=== PATIENT | male | born 1950 | race Caucasian/White ===

== ENCOUNTER 2019-02-14 09:54 | Inpatient (IN) ==
[2019-02-14] MEDS: 0.9 % Sodium Chloride 1,000 ML IVC SCH ×2 (10:58→22:16)
--- NOTE | 2019-02-14 11:27 | Pre-Sedation Evaluation ---
Pre-sedation evaluation - Pre-sedation checklist Date of procedure: 02/14/19 Procedure: [facility] Recent Vitals: Last Vital Signs Temp 98.1 F 02/14/19 10:38 Pulse 68 02/14/19 10:38 Resp 18 02/14/19 10:38 BP 161/84 02/14/19 10:38 Pulse Ox 98 02/14/19 10:38 H&P (including ROS) documented in medical record: Yes Previous reaction to sedatives/anesthetics: No Dietary Status: NPO after Midnight Airway Assessment: Patient can open mouth completely, TMJ function normal, Micrognathia (under-bite, receding chin) absent, Neck with adequate range of mot ion Dentition: No loose teeth or bridges Possible difficult airway: No ASA Classification *see protocol: CLASS II-Mild systemic disease Plan of Care: Pt appropriate candidate for procedure/moderate/conscious sedation, Risks/benefits of procedure/sedation discussed w/ patient/family Cardiac Registry (Cardio Only) - Functional Capacity Functional Capacity: >=4 METS with symptoms - Clincal Frailty Scale Clinical Frailty Scale: Managing Well
--- NOTE | 2019-02-14 11:28 | History & Physical Report ---
Date of Encounter: 02/14/19 Time of Encounter: 11:25 24 Hour HP Update - Instructions Instructions: If the History and Physical is less than 30 days old and was completed prior to A.M. admission and or procedure and has NOT been updated on calendar day of procedure please complete this update prior to performing procedure. - Update Patient reports changes in Medical Condition: No Changes in examination, assessment, or condition: No Changes in Medication: No Preop tests/diagnostics Reviewed: Yes Surgery Remains Indicated: Yes Consent for Planned Operative Procedure(s) Verified: Yes - Pre-Operative Checklist Preoperative Checklist Indicated: No Prophylactic Antibiotic Ordered: No Home Medications Include Beta Ronald: Yes Beta Ronald Taken Today (Day of Surgery): Yes Beta Ronald Taken Yesterday (Day Prior to Surgery): Yes Is VTE Prophylaxis Indicated?: NO
[2019-02-14] MEDS ORDERED: Heparin 1,000 UNITS/500 mL 500 ML ONE (11:31)
[2019-02-14] MEDS ORDERED: *HR* Heparin 10,000 UNIT/10 ML VIAL ONE (11:31)
[2019-02-14] MEDS ORDERED: 0.9 % Sodium Chloride 1,000 ML ONE (11:31)
[2019-02-14] MEDS ORDERED: ISOVUE-370 200 ML INFUS..BTL ONE (11:31)
[2019-02-14] MEDS ORDERED: Nitroglycerin 1,000 MCG/10 ML VIAL IV ONE (11:31)
[2019-02-14] MEDS ORDERED: *HR* Midazolam HCl 2 MG/2 ML VIAL ONE (11:47)
[2019-02-14] MEDS ORDERED: *HR* FentaNYL (PF) 100 MCG/2 ML VIAL ONE (11:47)
[2019-02-14] MEDS ORDERED: D5% in Water 1,000 ML IVC PRN (15:39)
[2019-02-14] MEDS ORDERED: Dextrose Gel 15 GM/37.5 ML TUBE PO PRN ×2 (15:39)
[2019-02-14] MEDS ORDERED: *HR* Dextrose 50 % in Water (Syg) 50 ML SYRINGE IVP PRN (15:39)
[2019-02-14] MEDS ORDERED: Nitroglycerin 0.4 MG TAB.SUBL SL PRN (15:45)
--- NOTE | 2019-02-14 15:47 | Invasive Diagnostic Lab Proc ---
Name: Humble Metzger Date of Study: 02/14/2019 Date: 1950 Ht: 70.0in Medical Record#: [id number] Age: 69 Wt: 221.00lb Gender: Male BSA: 2.18 Order #: [id number] BMI: 31.71 Physicians Procedure Physician: Karey Garcia MD, [facility] Referring MD: [facility] Referring MD: Staff Name Position Time In RichelleArleen RN Pre-Op Nurse 10:40 AM Deb Campos RN Pre-Op Nurse 10:40 AM Divina Morrison RT (R) Pre-Op Nurse 10:40 AM Divina Morrison RT (R) Scrub 11:47 AM Navneet Raya RN Monitor 11:48 AM Patricia Victor RN Childcare Aide 11:48 AM Indications Indication Abnormal Test - Stress Procedures Performed Procedure L HRT ARTERY/VENTRICLE ANGIO Pre-Procedure Checklist Informed consent is complete signed and on chart. H&P is on chart. ID band is on and ID verified with patient. Patient NPO for procedure The procedure was described for the patient and questions were answered. Blood Pressure: 161/84 ECG is on chart. Rhythm: NSR Plan of Care Patient will tolerate the procedure without complications. Adequate level of comfort will be maintained. Hemodynamics will remain stable Patient will recover from procedure without complications. Respiratory function will be maintained. Cardiac rhythm will remain stable. Patient temperature will be maintained. Patient and/or family have verbalized understanding of the procedure. Patient Education Chief Complaint/Reason for Test: Cardiac Cath Developmental Category: Geriatric (65+ years) Developmentally Appropriate for Age: Yes Learning Barriers: None Education Needs: Procedure Education Method: Verbal Information Taught: Cardiac Cath Educational Evaluation: Able to repeat information Intravenous Access Time IV Size Location DC'd Fluid/Drip Rate Units RN 10:58 AM Started with 20g 1 1/4" Lt Arm 0.9NaCl 100 ml/hr Divina Morrison RT (R) Allergies no known drug allergies Vital Signs Time BP (mmHg) HR (bpm) O2 Sat. RR (bpm) LOC 10:41 AM 161 / 84 68 98 % 18 5 = Fully awake and oriented or at pre-proc level 11:49 AM / % 5 = Fully awake and oriented or at pre-proc level 11:45 AM 161 / 81 94 96 % 10 11:49 AM 147 / 75 70 99 % 10 11:54 AM 125 / 68 72 95 % 18 11:59 AM 127 / 70 69 95 % 22 12:05 PM 121 / 67 73 99 % 11 12:21 PM 121 / 62 68 97 % 14 5 = Fully awake and oriented or at pre-proc level 12:30 PM 121 / 62 68 96 % 14 5 = Fully awake and oriented or at pre-proc level 12:45 PM 113 / 63 67 97 % 14 5 = Fully awake and oriented or at pre-proc level 01:00 PM 127 / 63 63 97 % 14 5 = Fully awake and oriented or at pre-proc level 01:30 PM 132 / 69 67 96 % 14 5 = Fully awake and oriented or at pre-proc level 02:05 PM 132 / 69 64 97 % 14 5 = Fully awake and oriented or at pre-proc level 02:35 PM 150 / 79 65 99 % 16 5 = Fully awake and oriented or at pre-proc level Procedural Medications Time Medication Dose Units Method Given By 11:48 AM Oxygen 2 L/min nasal cannula Patricia Victor RN 11:48 AM Versed 2 mg Intravenous Patricia Victor RN 11:48 AM Fentanyl 50 mcg Intravenous Patricia Victor RN 11:54 AM Lidocaine 2% 19 ml Subcutaneous Karey Garcia MD, [facility] ASA Classification: CLASS II- Mild systemic disease (i.e. well-controlled diabetes, hypertension, asthma, cigarette smoking) Rose Mary Score Preprocedure Postprocedure Activity 2- Moves 4 extremities sustained head lift Activity 2- Moves 4 extremities sustained head lift Circulation 2- SBP +/= 20 points of pre-anesthetic level Circulation 2- SBP +/= 20 points of pre-anesthetic level Consciousness 2- Awake and alert oriented x 3 Consciousness 2- Awake and alert oriented x 3 O2 Saturation 2- Able to maintain O2 satruation of 92% on room air O2 Saturation 2- Able to maintain O2 satruation of 92% on room air Respiratory 2- Able to deep breathe and cough well Respiratory 2- Able to deep breathe and cough well Total Score 10 Total Score 10 Contrast Agent: Isovue Diagnostic Contrast: 79 ml Total Contrast: 79 ml Fluoro Dose: 27 mGy Procedure Log Time Note Enter By 10:40 AM Risk for fall? Yes, Medications (change in amt./frequency,newly prescribed,potential combinations) mprater 10:40 AM Evidence of mental, physical, or emotional abuse? No mprater 10:40 AM Does patient have suicidal ideations? 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 Physician arrived 11:46 [email or web address] 11:46 AM ASA Class CLASS II- Mild systemic disease (i.e. well-controlled diabetes, hypertension, asthma, cigarette smoking) [email or web address] 11:46 AM Meet and greet completed [place] [id number] 11:46 AM Sign in performed according to hospital policy. Informed consent was obtained. [email or web address] 11:46 AM Procedure start 11:46 [email or web address] 11:47 AM Hair removed from procedure site in holding area using clippers. Bilateral groin prepped with Chloraprep by Divina Morrison RT (R), then patient was draped. Skin intact. [email or web address] 11:48 AM Divina Morrison (R) Position: Scrub Time in: 11:47 [email or web address] 11:48 AM Navneet Raya RN Position: Monitor Time in: 11:48 [email or web address] 11:48 AM Patricia Victor RN Position: Childcare Aide Time in: 11:48 [email or web address] 11:48 AM Time: 11:48 Oxygen on at 2 L/min per nasal cannula by Patricia Victor RN [email or web address] 11:48 AM Time: 11:48 Versed 2 mg Intravenous Given by Patricia Victor RN [email or web address] 11:48 AM Time: 11:48 Fentanyl 50 mcg Intravenous Given by Patricia Victor RN [email or web address] 11:49 AM Case Start 11:49 AM CathStat 11:49 AM Recorded ECG: HR=65 Condition=Condition 1 11:49 AM Time: 11:49 Patient comfortable and pain free: Yes [email or web address] 11:49 AM Time: 11:49LOC: 5 = Fully awake and oriented or at pre-proc level [email or web address] 11:[facility] AM HR=70 bpm, OSXZ=455/75 mmhg, SpO2=99.0 %, Resp=10 B/min, EtCO2=18 mmHg, Comment=NSR 11:53 AM Clinical Presentation: Unstable angina cedwards 11:53 AM Time out was performed according to hospital policy. Conscious sedation and anesthesia was achieved (see medication log with in this report above) cedwards 11:54 AM Time: 11:54 19 ml Lidocaine 2% to right groin Subcutaneous Given by Karey Garcia MD, [facility] cedwards 11:54 AM Access obtained by percutaneous puncture. 5Fr 10cm Terumo [place] sheath placed in right Femoral artery. [id number] cedwards 11:54 AM HR=72 bpm, BRDT=947/68 mmhg, SpO2=95.0 %, Resp=18 B/min, EtCO2=27 mmHg, Comment=NSR 11:56 AM 0.035 145cm Navilyst 3mmJ wire [id number] ced[place] 11:56 AM 5Fr FL 4 catheter inserted over the wire [facility] cedwards 11:56 AM LCA angiography performed in multiple views. cedwards 11:57 AM Recorded Pressure: Ao, HR=69, Condition=Condition 1 (Aorta) Ao 100/52/73 11:58 AM Coronary Dominance: right cedwards 11:58 AM Catheter removed cedwards 11:58 AM 5Fr FR 4 catheter inserted over the wire [facility] cedwards 11:59 AM RCA angiography performed in multiple views. cedwards 11:59 AM HR=69 bpm, JKAF=834/70 mmhg, SpO2=95.0 %, Resp=22 B/min, EtCO2=18 mmHg, Comment=NSR 12:00 PM Catheter removed cedwards 12:00 PM 5Fr Pigtail catheter inserted over the wire [facility] cedwards 12:01 PM Pressure channel 1 zeroed. 12:01 PM Recorded Pressure: LV, HR=76, Condition=Condition 1 (Left Ventricle) LV 122/-6/11 12:01 PM Recorded Pressure: LV, Ao, HR=75, Condition=Condition 1 (Left Ventricle) LV 201/50/149, (Aorta) Ao 112/63/88 12:02 PM Catheter crossed the aortic valve and was selectively placed in the left ventricle. Pressures recorded on pullback for left heart catheterization. cedwards 12:02 PM Bolus angiogram of left Ventricle complete: 8 ml/sec for a total of 24 mls cedwards 12:04 PM Catheter removed cedwards 12:05 PM HR=73 bpm, LVLI=142/67 mmhg, SpO2=99.0 %, Resp=11 B/min, EtCO2=30 mmHg, Comment=NSR 12:06 PM Procedure completed at 12:05 02/14/2019 cedwards 12:06 PM Did you address DELANEY flow and Dominance? YesCoronary Dominance: right cedwards 12:07 PM Sign out completed: Radiation Dose 199.4 mGy, 27.2 Gy/cm2 Fluoro Time: 1.2 Isovue 370 - 200ml contrast 79 ml given by Karey Garcia MD, [facility]. Complications: None. 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 Sedation minutes 19. Cardiac Rehab Consult needed: Yes. Confirmed administered medications: Yes cedwards 12:07 PM Isovue 370 - 200ml,1 Bottle(s) used. cedwards 12:07 PM Arterial sheath pulled, Mynx closure device used and was Successful [id number] S/N. cedwards 12:07 PM Estimated Blood Loss: minimal cedwards 12:07 PM Post ECG NSR cedwards 12:07 PM Post Blood Pressure 135/67 cedwards 12:07 PM Information taught Cardiac Cath and Mynx cedwards 12:08 PM Education needs Procedure, Plan of Care, and Disease Process cedwards 12:08 PM Learning barriers :None cedwards 12:08 PM Education Methods Verbal cedwards 12:08 PM Education evaluation Able to repeat information cedwards 12:08 PM Site status No bleeding/hematoma - Rt Groin as reported by Divina Morrison RT (R) at 12:08 ced[place] 12:08 PM Opsite applied cedwards 12:09 PM Plavix, Effient or Brilinta given No cedwards 12:09 PM Family placed in consult room. cedwards 12:09 PM Complications: None cedwards 12:14 PM Lesion found in Proximal RCA. Pre Stenosis: 90 Pre DELANEY Flow: cedwards 12:14 PM Lesion found in Mid RCA. Pre Stenosis: 100 Pre DELANEY Flow: cedwards 12:14 PM Lesion found in Distal LMCA. Pre Stenosis: 60 Pre DELANEY Flow: cedwards 12:14 PM Lesion found in Proximal LAD. Pre Stenosis: 90 Pre DELANEY Flow: cedwards 12:15 PM Lesion found in Mid LAD. Pre Stenosis: 80 Pre DELANEY Flow: cedwards 12:15 PM Lesion found in Proximal Circumflex. Pre Stenosis: 80 Pre DELANEY Flow: cedwards 12:15 PM Lesion found in Mid Circumflex. Pre Stenosis: 60 Pre DELANEY Flow: cedwards 12:16 PM Lesion found in Distal Circumflex. Pre Stenosis: 70 Pre DELANEY Flow: cedwards 12:16 PM Lesion found in Ramus. Pre Stenosis: 60 Pre DELANEY Flow: cedwards 12:17 PM Lesion found in 2nd Marginal. Pre Stenosis: 99 Pre DELANEY Flow: cedwards 01:56 PM Report given to Sierra RODRIGUEZ on 2A 13:56 kmavis 02:12 PM Activity: 2 Circulation: 2 Consciousness: 2 O2 Saturation: 2 Respiration: 2 kmavis 02:12 PM assisted patient to sit up to side of bed to eat lunch. kmavis 03:[address] Fine at bedside for consultation. Sandy Natarajan will do CABG education 02/15/19. kmavis 03:38 PM Called Sierra RODRIGUEZ on 2A and updated her with report on patient. kmavis 03:38 PM Patient ambulated with assistance. Insertion site without bleeding or hematoma. Pulses unchanged. kmavis 03:39 PM Report given to Sierra RODRIGUEZ Pt taken to 2A Room #71. 15:39 kmavis Complications Complication None None Hemodynamics Pressures Site Systolic/A Wave Diastolic/V Wave Mean AO 100 52 73 LV 122 -6 11 LV 201 50 149 AO 112 63 88 Post Procedure Information Blood Pressure: 135/67 mmHg Rhythm: NSR Post procedural instructions were given Surgery consult for CABG Closure Device Time Device Success/Fail 02/14/2019 12:13:00 PM MynxGrip Successful Site Checks Time Location Status Staff Sheath In? Note 12:08 PM Rt Groin No bleeding/hematoma Divina Morrison RT (R) 12:22 PM Rt Groin No bleeding/ No Hematoma Divina Morrison RT (R) 12:30 PM Rt Groin No bleeding/ No Hematoma Deb Campos RN 12:45 PM Rt Groin No bleeding/ No Hematoma Deb Campos RN 01:00 PM Rt Groin No bleeding/ No Hematoma Deb Campos RN 01:30 PM Rt Groin No bleeding/ No Hematoma Deb Campos RN 02:05 PM Rt Groin No bleeding/ No Hematoma Deb Campos RN 02:35 PM Rt Groin No bleeding/ No Hematoma Arleen Peoples RN Pulses Time Site Pre-Procedure Post-Procedure Note 02/14/2019 10:46:00 AM Bilateral radial 2+ 02/14/2019 10:46:00 AM Bilateral DP 1+ 02/14/2019 10:46:00 AM Bilateral PT Doppler 02/14/2019 12:21:00 PM Bilateral DP 1+ 02/14/2019 12:21:00 PM Bilateral PT Doppler Updated by Deb Campos RN on 02/14/2019 3:40:15 PM electronically signed on 02/14/2019 3:40:49 PM with status of Final
[2019-02-14] MEDS: *HR* GlipiZIDE 5 MG TABLET PO SCH (18:09)
[2019-02-14] MEDS: Insulin LISPRO 300 UNITS/3 ML VIAL SQ SCH (18:09)
[2019-02-15] MEDS ORDERED: CeFAZolin Syr 2,000MG/20 ML 2,000 MG/20 ML SYRINGE IVPB ONE (07:29)
--- NOTE | 2019-02-15 07:36 | Cardiothoracic Progress Note ---
Date of Encounter: 02/15/19 Time of Encounter: 07:34 - Assessment and plan (1) CAD (coronary artery disease) Current Visit: No Status: Acute The patient is scheduled for CABG for severe 3 vessel CAD, including a 60% distal left main lesion and a completely occluded proximal RCA. All the patient's questions have been answered. He understands the procedure, benefits, alternatives, and risks, and gives his informed consent. The assessment and plan as outlined above was discussed with the patient and/or family members who expressed understanding and agreement. All questions were answered. Qualifiers: Coronary Disease-Associated Artery/Lesion type: [place] artery [place] vs. transplanted heart: [place] heart Associated angina: without angina Qualified Code(s): I25.10 - Atherosclerotic heart disease of [place] coronary artery without angina pectoris - Subjective Interval history: The patient remained hemodynamically stable overnight. He has no complaints of substernal chest pain. Vital Signs, Last 4 Hours Temp Pulse Resp BP Pulse Ox 02/15/19 07:30 98.1 F 66 16 130/67 95 02/15/19 03:54 98.0 F 67 17 103/59 97 Clinical Data, last 8 Hours Output, Urine Amount 0 Weight 02/13/19 02/14/19 02/15/19 23:59 23:59 23:59 Weight 100.244 kg 99.7 kg - Physical Examination General: Conversant, No Apparent Distress Neck: No JVD, Normal carotid pulses Cardiac: Reg Rate and Rhythm, Normal S1 and S2, No Murmur Lungs: Normal Breath Sounds, No Wheeze, Rales, Rhonchi Neuro: Alert and responsive, No focal deficits noted Vascular: Normal capillary refill Musculoskeletal: No Chest Wall Tenderness Extremities: No Clubbing, No Cyanosis, No Edema - Labs Lab Results, Last 24 hours 02/14/19 02/14/19 16:26 21:00 POC Glucose 213 H 89 - VTE Reasons for not Prescribing Prophylaxis: Not indicated-Anticoagulated or INR therapeutic Consult Discharge Plan - Plan [facility]: [facility]Primary Care Provider[facility] -
[2019-02-15] MEDS: Insulin LISPRO 300 UNITS/3 ML VIAL SQ SCH ×3 (08:19→17:10)
[2019-02-15] MEDS: *HR* GlipiZIDE 5 MG TABLET PO SCH ×2 (08:30→17:09)
[2019-02-15] MEDS: Cyanocobalamin (B-12) 1,000 MCG TABLET PO SCH (08:30)
[2019-02-15] MEDS: Chlorhexidine Rinse 15 ML MOUTHWASH MM SCH ×2 (08:30→21:15)
[2019-02-15] MEDS: Metoprolol XL (24 HR) Succ 50 MG TAB.ER.24H PO SCH (08:31)
[2019-02-15] MEDS: 0.9 % Sodium Chloride 1,000 ML IVC SCH ×2 (08:31→11:04)
[2019-02-15] MEDS: hydroCHLOROthiazide 25 MG TABLET PO SCH (08:31)
[2019-02-15] MEDS: Aspirin Enteric Coated 81 MG Tablet PO SCH (08:31)
[2019-02-15] MEDS ORDERED: Lisinopril 20 MG TABLET PO SCH (09:00)
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
--- NOTE | 2019-02-15 09:54 | Cardiology Progress Note ---
Date of Encounter: 02/15/19 Time of Encounter: 09:00 Assessment and Plan (1) CAD (coronary artery disease) Current Visit: Yes Status: Acute Outpatient [facility] admitted due to severe 3v CAD. CT consulted. 02/14/19 TTE: LVEF 65%, mild LVDD, normal RV structure and function, AV sclerosis, mild MR/TR, normal wall motion 02/14/19 C: severe 3v CAD with severe LM disease: 60% dLM; 90% pLAD, 80% mLAD; 80% ostial/pLCx, 60% mLCx, 70% dLCx, 99% OM2; 60% Ramus; 90% pRCA, 100 mRCA-[employer], right PDA fills via left to right collaterals No chest pain or discomfort overnight, no issues with right groin cath access site. Will KVO IVF. CT surgery following, plan for CABG in AM. Continue current CV medications including asa, statin, and BB. Outpatient follow-up with Dr. Garcia in 4-6 weeks. Qualifiers: Coronary Disease-Associated Artery/Lesion type: [place] artery [place] vs. transplanted heart: [place] heart Associated angina: with stable angina Qualified Code(s): I25.118 - Atherosclerotic heart disease of [place] coronary artery with other forms of angina pectoris Discussion w patient/family: The assessment and plan as outlined above was discussed with the patient and/or family members who expressed understanding and agreement. All questions were answered. Thank you for involving us in the care of your patient. Please call with any questions. The patient will be discussed and reviewed with Dr. Gardner; changes to be made accordingly. Subjective Principal diagnosis: CAD Interval history: Seen and examined. No chest pain/angina reported overnight. No issues with right groin cath site--KIP. No abnormal or unusual bleeding. Plan for CVOR tomorrow, 02/16, for CABG. Objective Vital Signs, Last 4 Hours Temp Pulse Resp BP Pulse Ox 02/15/19 07:30 98.1 F 66 16 130/67 95 General: Conversant, No Apparent Distress HEENT: Atraumatic, Normocephaly, Mucus Membranes Moist Neck: No JVD, Normal carotid pulses Cardiac: Reg Rate and Rhythm, Normal S1 and S2, No Murmur Lungs: Normal Breath Sounds, No Wheeze, Rales, Rhonchi Neuro: Alert and responsive, No focal deficits noted Abdomen: Soft, Non-Tender Skin: No rashes noted on visualized skin Musculoskeletal: No Chest Wall Tenderness Extremities: No Clubbing, No Cyanosis, No Edema, Normal Pulses Other: right groin cath site: +2 distal pulses, no hematoma, bleeding or oozing noted at site. Results Active Medications Aspirin (Aspirin Ec) 81 mg PO DAILY YOLA Stop: 08/17/19 09:01 Last Admin: 02/15/19 08:31 Dose: 81 mg Documented by: Aspirin (Aspirin) 81 mg PO 0600 ONE Stop: 02/16/19 06:01 Atorvastatin Calcium (Lipitor) 80 mg PO HS YOLA Stop: 08/17/19 21:01 Chlorhexidine Gluconate (Chlorhexidine Rinse) 15 ml MM BID YOLA Stop: 02/15/19 21:01 Last Admin: 02/15/19 08:30 Dose: 15 ml Documented by: Cyanocobalamin (Vitamin B12) 1,000 mcg PO DAILY YOLA Stop: 08/17/19 09:01 Last Admin: 02/15/19 08:30 Dose: 1,000 mcg Documented by: Dextrose/Water (Dextrose 50% (Syg)) 25 ml IVP AD PRN PRN Reason: Hypoglycemia Stop: 08/16/19 15:40 Glipizide (Glucotrol) 10 mg PO BIDWM YOLA Stop: 08/16/19 17:01 Last Admin: 02/15/19 08:30 Dose: 10 mg Documented by: Glucagon (Glucagen) 1 mg IM ONCE PRN PRN Reason: Hypoglycemia Stop: 08/16/19 15:40 Glucose (Gluctose) 15 gm PO ONCE PRN PRN Reason: Hypoglycemia Stop: 08/16/19 15:40 Glucose (Gluctose) 30 gm PO ONCE PRN PRN Reason: Hypoglycemia Stop: 08/16/19 15:40 Hydrochlorothiazide (Hydrochlorothiazide) 25 mg PO DAILY [facility]; Protocol Stop: 08/17/19 09:01 Last Admin: 02/15/19 08:31 Dose: 25 mg Documented by: Sodium Chloride (0.9 % Sodium Chloride) 1,000 mls @ 100 mls/hr IVC .Q10H YOLA Stop: 08/16/19 10:31 Last Admin: 02/15/19 08:31 Dose: 100 mls/hr Documented by: Dextrose (Dextrose 5%) 1,000 mls @ 100 mls/hr IVC .Q10H PRN PRN Reason: HYPOGLYCEMIA Stop: 08/16/19 15:40 Cefazolin Sodium 2,000 mg/ (Sterile Water) 20 mls @ 200 mls/hr IVP PREOP ONE; Protocol Stop: 02/16/19 06:50 Insulin Human Lispro (Humalog) 0 units SQ TIDAC YOLA; Protocol Stop: 08/16/19 16:31 Last Admin: 02/15/19 08:19 Dose: Not Given Documented by: Metoprolol Succinate (Toprol Xl) 100 mg PO DAILY YOLA Stop: 08/17/19 09:01 Last Admin: 02/15/19 08:31 Dose: 100 mg Documented by: Metoprolol Tartrate (Lopressor) 25 mg PO 0600 ONE Stop: 02/16/19 06:01 Nitroglycerin (Nitroglycerin) 0.4 mg SL Q5MIN PRN PRN Reason: CHEST PAIN Stop: 08/16/19 15:46 - Imaging and Cardiology Cardiac cath: report reviewed Other Results: 12 hour tele: avg HR=72 SR. No events noted. - EKG Interpretation EKG results cardiology: personally reviewed - VTE Reasons for not Prescribing Prophylaxis: Not indicated-Anticoagulated or INR therapeutic Consult Discharge Plan - Plan [facility]errals: [facility] [Primary Care Provider] -
[2019-02-15 11:51] LABS: BUN/Creatinine Ratio 20 (6-26); Blood Urea Nitrogen 18 mg/dL (8-23); Calcium 9.1 mg/dL (8.6-10.3); Carbon Dioxide 27 mEq/L (23-29); Chloride 105 mEq/L (98-107); Chol/HDL Ratio 5.3 (0-4.9); Cholesterol 127 mg/dL (< 200); Glucose 176 mg/dL (70-105); HDL Cholesterol 24 mg/dL (40-59); LDL Cholesterol,Calculated 76 mg/dL (0-99); Osmolality,Calculated 288 (280-300); Potassium 4.3 mEq/L (3.5-5.1); Sodium 136 mEq/L (136-145); Triglycerides 137 mg/dL (< 150); eGFR For Non-African Americans > 60 (> 60)
[2019-02-15 11:58] LABS: Estimated Average Glucose 203 mg/dl; Hemoglobin A1C 8.7 %
[2019-02-16] MEDS ORDERED: Heparin 15,000 UNIT in 0.9 % Sodium Chloride 500 ML IV ONE (06:00)
[2019-02-16] MEDS ORDERED: Insulin Human Regular 100 UNIT in 0.9 % Sodium Chloride 100 ML IV PRN (06:00)
[2019-02-16] MEDS ORDERED: Norepinephrine 4 MG in D5% in Water 250 ML IVC PRN (06:00)
[2019-02-16] MEDS ORDERED: Aspirin 81 MG TAB.CHEW PO ONE (06:00)
[2019-02-16] MEDS ORDERED: Dextrose 50 % in Water (Vial) 30 ML, Sodium Bicarbonate 20 MEQ, Potassium Chloride 15 M... TH ONE (06:00)
[2019-02-16] MEDS ORDERED: Dextrose 50 % in Water (Vial) 30 ML, Sodium Bicarbonate 20 MEQ, Lidocaine 1% 5 ML, Insu... TH ONE ×3 (06:00)
[2019-02-16] MEDS ORDERED: NiCARdipine 2.5 MG/10 ML Syringe IVPB ONE (06:42)
[2019-02-16] MEDS ORDERED: Nitroglycerin 25 MG/250 ML INFUS..BTL IVC ONE (06:42)
[2019-02-16] MEDS ORDERED: CeFAZolin Syr 2,000MG/20 ML 2,000 MG/20 ML SYRINGE IVPB ONE (06:45)
[2019-02-16] MEDS ORDERED: *HR* Midazolam HCl 5 MG/5 ML VIAL IVP ONE (06:46)
[2019-02-16] MEDS ORDERED: Tranexamic Acid 1,000 MG/10 ML VIAL ONE ×2 (06:46→09:29)
[2019-02-16] MEDS ORDERED: *HR* PHENYLEPHRINE 1,000 MCG/10 ML SYRINGE IVP ONE ×2 (06:46→10:58)
[2019-02-16] MEDS ORDERED: Protamine Sulfate 250 MG/25 ML VIAL IVP ONE (06:46)
[2019-02-16] MEDS ORDERED: *HR* Rocuronium Bromide 50 MG/5 ML VIAL ONE ×2 (06:46→09:56)
[2019-02-16] MEDS ORDERED: *HR* FentaNYL (PF) 1,000 MCG/20 ML VIAL ONE (06:46)
[2019-02-16] MEDS ORDERED: *HR* Etomidate 20 MG/10 ML AMPUL IVP ONE (06:48)
[2019-02-16] MEDS ORDERED: Famotidine 20 MG/2 ML VIAL ONE (06:48)
[2019-02-16 08:11] LABS: ABG Base Excess -1 mEq/L (-2 to 3); ABG Chloride 103 mEq/L (98-107); ABG Glucose 175 mg/dL (60-95); ABG HCO3 25 mEq/L (21-27); ABG Ionized Calcium 1.29 mmol/L (1.15-1.35); ABG Oxygen Saturation 100 % (95-98); ABG PCO2 49 mmHg (35-45); ABG PH 7.33 pH Units (7.32-7.45); ABG PO2 198 mmHg (85-104); ABG TCO2 27 mEq/L (20-26)
--- NOTE | 2019-02-16 08:44 | Anesthesia Procedures ---
Date of Encounter: 02/16/19 Time of Encounter: 07:45 Procedures: Anesthesia - Arterial Line Consent obtained: written consent Time out performed: Yes Sedation: Versed (mg): 2 Sedation: Fentanyl (mcg): 100 Supplemental Oxygen via Nasal Cannula (L/min): 2 Local Anesthetic: Lidocaine 1% Amount of Anesthetic used (mls): 1 Size (Gauge): 20 Length (inches): 5 Technique Used: sterile prep, guide wire technique, direct puncture technique Post-Procedure: line taped into place, dry sterile dressing placed Patient tolerated procedure: well Complications: none Site: Brachial L Comments: attempted left radial and able to access artery but unable to advance guidewire. attempted left brachial using US, able to access artery and advance guidewire easily. Catheter placed easily, good blood return. - Central Line Placement Right IJ Consent obtained: written consent Time out performed: Yes Patient placed on monitor/pulse ox: Yes prep: mask, gown, gloves Central line prep: Chlorhexidine scrub Ultrasound used for placement: Yes Technique: Seldinger Lumen Inserted: Introducer Size / Length: 9 Fr / 10 cm Post procedure: sutured in place, good blood return, all ports aspirated, flushed, capped, sterile dressing applied Patient tolerated procedure: well, no complications Complications: none Comments: introducer placed easily, swan advanced without arrythmia, wedge at approx 55cm
[2019-02-16 09:12] LABS: ABG Base Excess -4 mEq/L (-2 to 3); ABG Chloride 108 mEq/L (98-107); ABG Glucose 193 mg/dL (60-95); ABG HCO3 21 mEq/L (21-27); ABG Ionized Calcium 1.05 mmol/L (1.15-1.35); ABG Oxygen Saturation 99 % (95-98); ABG PCO2 35 mmHg (35-45); ABG PH 7.38 pH Units (7.32-7.45); ABG PO2 115 mmHg (85-104); ABG TCO2 22 mEq/L (20-26)
[2019-02-16 09:50] LABS: ABG Base Excess 0 mEq/L (-2 to 3); ABG Chloride 101 mEq/L (98-107); ABG Glucose 218 mg/dL (60-95); ABG HCO3 24 mEq/L (21-27); ABG Ionized Calcium 1.08 mmol/L (1.15-1.35); ABG PCO2 35 mmHg (35-45); ABG PH 7.44 pH Units (7.32-7.45); ABG PO2 > 630 mmHg (85-104); ABG TCO2 25 mEq/L (20-26)
[2019-02-16 10:18] LABS: ABG Base Excess 0 mEq/L (-2 to 3); ABG Chloride 101 mEq/L (98-107); ABG Glucose 221 mg/dL (60-95); ABG HCO3 24 mEq/L (21-27); ABG Oxygen Saturation 100 % (95-98); ABG PCO2 35 mmHg (35-45); ABG PH 7.44 pH Units (7.32-7.45); ABG PO2 536 mmHg (85-104); ABG TCO2 25 mEq/L (20-26)
[2019-02-16 10:43] LABS: ABG Base Excess -1 mEq/L (-2 to 3); ABG Chloride 103 mEq/L (98-107); ABG Glucose 193 mg/dL (60-95); ABG HCO3 24 mEq/L (21-27); ABG Ionized Calcium 1.13 mmol/L (1.15-1.35); ABG Oxygen Saturation 100 % (95-98); ABG PCO2 40 mmHg (35-45); ABG PH 7.39 pH Units (7.32-7.45); ABG PO2 552 mmHg (85-104); ABG TCO2 25 mEq/L (20-26)
[2019-02-16] MEDS ORDERED: Albumin Human 5% 25.0 GM/500 ML VIAL ONE ×2 (10:50→11:47)
[2019-02-16 11:33] LABS: ABG Base Excess -3 mEq/L (-2 to 3); ABG Chloride 105 mEq/L (98-107); ABG Glucose 138 mg/dL (60-95); ABG HCO3 22 mEq/L (21-27); ABG Ionized Calcium 1.33 mmol/L (1.15-1.35); ABG Oxygen Saturation 96 % (95-98); ABG PCO2 35 mmHg (35-45); ABG PH 7.41 pH Units (7.32-7.45); ABG PO2 78 mmHg (85-104); ABG TCO2 23 mEq/L (20-26)
[2019-02-16] MEDS ORDERED: Calcium Chloride 1,000 MG in 0.9 % Sodium Chloride 100 ML IVPB PRN (11:52)
[2019-02-16] MEDS ORDERED: Insulin Regular, Human 100 UNIT/ML IV PRN (11:52)
[2019-02-16] MEDS ORDERED: Acetaminophen 325 MG TABLET PO PRN (11:52)
[2019-02-16] MEDS ORDERED: *HR* Dextrose 50 % in Water (Syg) 50 ML SYRINGE IVP PRN (11:52)
[2019-02-16] MEDS ORDERED: Acetaminophen 650 MG RECTAL SUPP RC PRN (11:52)
[2019-02-16] MEDS ORDERED: Ondansetron 4 MG/2 ML VIAL IVP PRN (11:52)
[2019-02-16] MEDS ORDERED: Naloxone 0.4 MG/ML INJ IVP PRN (11:52)
[2019-02-16] MEDS ORDERED: Potassium Chloride 40 MEQ/200 ML BAG IVPB PRN (11:52)
--- NOTE | 2019-02-16 11:52 | Operative Note ---
Date of procedure: 02/16/19 Pre-op diagnosis: CAD Post-op diagnosis: same Procedure: 1. CABG 4 (LOYOLA to LAD, SVG to ramus intermediate branch, SVG to OM2, SVG to PDA). 2. Endoscopic vein harvesting, greater saphenous vein from right lower extremity. 3. Endoscopic vein harvesting, greater saphenous vein from left lower extremity. Implants: None. Complications: None. Anesthesia: GETA Surgeon: Manuel Fine Was there an licensed loan officer assistant present: Yes Hog Driver: Calvin Saldivar Estimated blood loss (cc): 500 Specimen: None. Condition: stable Disposition: ICU Procedure in Detail: INDICATIONS FOR OPERATION: The patient is a 69-year-old type II diabetic, hypertensive man with hypercholesterolemia was admitted for elective cardiac catheterization prior to undergoing a left total knee replacement. He was found to have severe 3 vessel CAD and an LVEF 65%. In particular, the patient has a 60% distal left main lesion, 90% proximal LAD lesion, an 80% mid LAD lesion, an 80% ostial/proximal LCx lesion, a 60% mid LCx lesion, a 70% distal LCx lesion, a 99% proximal OM2 lesion, a 90% proximal RCA lesion, and a completely occluded mid RCA which fills distally via [id number] collaterals. He has been recommended for CABG. FINDINGS AT OPERATION: The aorta was of normal caliber without calcification. The coronary arteries measure approximately 1.5-2 mm in diameter and had mild distal disease. The greater saphenous vein was harvested endoscopically from the right lower extremity from the mid calf to the groin. The right greater saphenous vein was usable and the portion above the knee; however, below the knee was small and not thought to be suitable for bypass conduit. An additional portion of greater saphenous vein was harvested from the left lower extremity from the knee to the mid thigh. The total bypass time was 89 minutes, cross-clamp time 50 minutes, intentional hypothermia of 34.6 degrees centigrade. DESCRIPTION OF OPERATION: After obtaining informed operative consent from the patient, he was taken to the operating room where a satisfactory general endotracheal anesthetic was induced. Appropriate monitoring lines were placed, and the patient's chest, abdomen, and lower extremities were prepped and draped in a sterile fashion. Initially the greater saphenous vein was harvested endoscopically from the right lower extremity from the mid calf to the groin. The vein was removed, distended, and found to be of good quality from the knee to the groin. The section of vein below the knee was small and not thought to be a suitable bypass conduit. An additional segment of vein was harvested endoscopically from the left lower extremity from the knee to the mid thigh. This vein was removed, distended, and found to be of good quality. The subcutaneous tissue and skin edges were reapproximated running Vicryl sutures. Simultaneously, a standard been sternotomy incision was made and the sternum divided. The LOYOLA was taken down from its bed and side branches divided between hemoclips. The sternum was and the pericardium opened and reflected laterally. The patient was prepared for cannulation by placing pursestring sutures the distal ascending aorta, mid-ascending aorta, and right atrial appendage. The patient was heparinized and when the ACT was greater than 200 seconds, the distal ascending aorta was cannulated followed by placement of a dual stage venous cannula through the right atrial appendage and into the inferior vena cava. A stab-in antegrade metabolic cannula was placed in the mid-ascending aorta. The patient was placed on bypass and the temperature allowed to drift to 34.6 degrees centigrade. The distal targets were identified and the aorta was crossclamped. The patient received 700 mL of cold antegrade crystalloid cardioplegia the aortic root and the patient's heart obtained rapid diastolic arrest. The PDA was opened be blade and the vein was anastomosed in end-to-side fashion using running 7-0 Prolene suture. The anastomosis was found to be hemostatic. The distal LCx was examined; however, this vessel was small and not thought to be bypassable. The OM 2 branch was opened the [place] blade and the vein was anastomosed in an end-to-side fashion using running 7-0 Prolene suture. The anastomosis found be hemostatic and the patient received another dose of cold antegrade crystalloid cardioplegia through the aortic root. The ramus intermediate branch was opened be blade and the vein was anastomosed in an end-to-side fashion using running 7-0 Prolene suture. The anastomosis found to be hemostatic and the patient received a final dose of cold antegrade Crisler cartilage up through the aortic root. The LAD was opened be blade and found to be a smaller vessel, measuring approximately 1.25-1.5 mm in diameter. The LOYOLA a was anastomosed in an end-to-side fashion to the LAD using running 7-0 Prolene suture. The anastomosis found to be hemostatic and the mammary pedicle was tacked to the epicardium using interrupted 5-0 silk suture. Rewarming was begun during this anastomosis. The aortic cross-clamp was released and the heart distended. The veins were measured and cut appropriate lengths. A partial occluding clamps placed across the mid ascending aorta and the antegrade cardioplegia cannula was removed. Two additional aortotomy sites were made 11 blade, and all 3 sites were enlarged with 4 mm punch. The veins were anastomosed in an end-to-side fashion to the aorta using a running 5-0 Prolene suture. The vein grafts were occluded with bulldog clamps and de-aired the 25-gauge needle prior to removing the partial occluding clamp. The proximal and distal anastomoses were found to be hemostatic and the proximal anastomoses were marked with radiopaque loops. Two right ventricular temporary epicardial pacing leads were placed, and 3 chest suture placed, 2 in the mediastinum and one into the left pleural space. During rewarming the patient's heart regained normal sinus rhythm spontaneously. When the patient's systemic temperature reached 36 degrees centigrade, he was ventilated and received volume. He was weaned from bypass required no inotropic support. Protamine was administered and the aortic and venous cannulae were removed. The pursestring sutures were secured and both the aortic and venous cannulation site s were reinforced with a running 4-0 Prolene suture. The pericardium was loosely reapproximated the midline using interrupted 0 silk suture. The sternum was reapproximated using sternal wires in the pectoralis major fascia, rectus abdominis fascia, simultaneous tissue, and skin edges were reapproximated running Vicryl sutures. Sterile dressings were applied. The patient was transferred to the ICU in satisfactory postoperative condition. There were no intraoperative complications, and the instrument, needle, and sponge count were corrected at end of operation. - Open Heart Detail JUDY (Internal Mammary Artery) Usage: Yes Cardiopulmonary Bypass Time (mins): 89 Aortic Cross Clamp Time (mins): 50 Intentional Hypothermia Temperature (C.): 34.6
[2019-02-16] MEDS: Nitroglycerin 25 MG/250 ML INFUS..BTL IVC SCH ×2 (11:59→22:28)
[2019-02-16] MEDS ORDERED: Norepinephrine 4 MG in D5% in Water 250 ML IVC SCH (12:00)
[2019-02-16] MEDS ORDERED: Insulin Human Regular 100 UNIT in 0.9 % Sodium Chloride 100 ML IVC SCH (12:00)
[2019-02-16 12:32] LABS: Basophils % 0.3 %; Eosinophils # 0.5 K/mcL (0.0-0.6); Eosinophils % 3.5 %; Hematocrit 24.7 % (37.5-50.1); Immature Granulocytes % 0.5 % (0-4); Mean Corpuscular Hemoglobin 30.3 pg (28.0-33.3); Mean Corpuscular Volume 89.2 fL (83.0-100.0); Mean Platelet Volume 10.5 fL (9.4-12.4); Monocytes # 1.2 K/mcL (0.0-1.3); Monocytes % 8.4 %; Neutrophils # 10.7 K/mcL (1.6-8.9); Platelet Count 133 K/mcL (140-400); Red Blood Count 2.77 M/mcL (4.19-5.50); Red Cell Distribution Width 13.1 % (11.5-14.5); Segmented Neutrophils % 73.3 %
[2019-02-16 12:36] LABS: Hemoglobin 8.4 g/dL (12.9-16.9)
[2019-02-16 12:41] LABS: INR 1.4; Prothrombin Time 15.5 Seconds (9.4-12.1)
[2019-02-16 12:44] LABS: Activated Partial Thrombo Time 30.3 Seconds (26.0-36.0)
[2019-02-16 12:49] LABS: BUN/Creatinine Ratio 19 (6-26); Blood Urea Nitrogen 19 mg/dL (8-23); Carbon Dioxide 26 mEq/L (23-29); Chloride 107 mEq/L (98-107); Glucose 114 mg/dL (70-105); Magnesium 2.3 mg/dL (1.6-2.6); Osmolality,Calculated 289 (280-300); Potassium 3.7 mEq/L (3.5-5.1); Sodium 138 mEq/L (136-145); eGFR For Non-African Americans > 60 (> 60)
[2019-02-16] MEDS: Cyanocobalamin (B-12) 1,000 MCG TABLET PO SCH (12:59)
[2019-02-16] MEDS: *HR* GlipiZIDE 5 MG TABLET PO SCH ×2 (12:59→14:05)
[2019-02-16] MEDS: niCARdipine 20 MG/200 ML MLS IVC SCH ×4 (12:59→23:14)
[2019-02-16] MEDS: 0.9 % Sodium Chloride w KCl 20 MEQ/1,000 ML MLS IVC SCH (13:06)
[2019-02-16] MEDS: Metoclopramide 10 MG/2 ML VIAL IVP SCH ×3 (13:07→23:13)
[2019-02-16] MEDS: *HR* OxyCODONE/APAP 5/325 TABLET PO PRN ×3 (13:07→23:14)
[2019-02-16] MEDS: Pantoprazole 40 MG VIAL IVP SCH (13:13)
[2019-02-16] MEDS: *HR* FentaNYL (PF) 100 MCG/2 ML VIAL IVP PRN ×3 (13:29→16:18)
[2019-02-16] MEDS ORDERED: *HR* Phenylephrine 10 MG/ML VIAL IVC ONE (14:14)
[2019-02-16] MEDS ORDERED: *HR* Heparin 10,000 UNIT/10 ML VIAL IV ONE (14:14)
[2019-02-16] MEDS ORDERED: Tranexamic Acid 1,000 MG/10 ML VIAL IVPB ONE (14:14)
[2019-02-16] MEDS ORDERED: Heparin 1,000 UNITS/500 mL IV.SOLN IVC ONE (14:14)
[2019-02-16] MEDS ORDERED: *HR* Magnesium Sulfate 2 GM/50 ML PIGGYBACK IVPB ONE (14:14)
[2019-02-16] MEDS ORDERED: Mannitol 25% vial 12.5 GM/50 ML VIAL IVP ONE (14:14)
[2019-02-16] MEDS ORDERED: D5% in Water 250 ML IV BAG IV ONE (14:14)
[2019-02-16] MEDS ORDERED: Lidocaine 2% Syringe 100 MG/5 ML IV ONE (14:14)
[2019-02-16] MEDS ORDERED: Albumin Human 25% 25 GM/100 ML IV.SOLN IV ONE (14:14)
[2019-02-16 16:15] LABS: ABG Base Excess 0 mEq/L (-2 to 3); ABG HCO3 24 mEq/L (21-27); ABG Oxygen Saturation 100 % (95-98); ABG PCO2 37 mmHg (35-45); ABG PH 7.42 pH Units (7.32-7.45); ABG PO2 442 mmHg (85-104); ABG TCO2 25 mEq/L (20-26); Blood Gas PEEP 5 cm H2O; Blood Gas Respiration Rate 12; Blood Gas VT 600 cc
[2019-02-16 16:33] LABS: ABG Base Excess -3 mEq/L (-2 to 3); ABG HCO3 22 mEq/L (21-27); ABG Oxygen Saturation 99 % (95-98); ABG PCO2 36 mmHg (35-45); ABG PH 7.39 pH Units (7.32-7.45); ABG PO2 136 mmHg (85-104); ABG TCO2 23 mEq/L (20-26); Blood Gas PEEP 5 cm H2O; Blood Gas Respiration Rate 12; Blood Gas VT 600 cc
[2019-02-16 17:52] LABS: Magnesium 2.3 mg/dL (1.6-2.6); Potassium 4.1 mEq/L (3.5-5.1)
[2019-02-16 18:54] LABS: ABG Base Excess -2 mEq/L (-2 to 3); ABG HCO3 23 mEq/L (21-27); ABG Oxygen Saturation 96 % (95-98); ABG PCO2 38 mmHg (35-45); ABG PH 7.39 pH Units (7.32-7.45); ABG PO2 81 mmHg (85-104); ABG TCO2 24 mEq/L (20-26); Blood Gas Modality CPAP/PS; Blood Gas Pressure Support 8 cm H2O
[2019-02-16] MEDS: Chlorhexidine Rinse 15 ML MOUTHWASH MM SCH (20:20)
[2019-02-17] MEDS: niCARdipine 20 MG/200 ML MLS IVC SCH ×2 (03:04→07:29)
[2019-02-17 04:24] LABS: Basophils % 0.2 %; Eosinophils % 0.1 %; Hematocrit 28.2 % (37.5-50.1); Hemoglobin 9.4 g/dL (12.9-16.9); Immature Granulocytes % 0.4 % (0-4); Lymphocytes # 1.4 K/mcL (0.6-4.6); Lymphocytes % 9.7 %; Mean Corpuscular HGB Conc 33.3 g/dL (31.6-35.5); Mean Corpuscular Hemoglobin 30.3 pg (28.0-33.3); Mean Platelet Volume 10.9 fL (9.4-12.4); Monocytes # 1.6 K/mcL (0.0-1.3); Monocytes % 10.6 %; Neutrophils # 11.6 K/mcL (1.6-8.9); Platelet Count 166 K/mcL (140-400); Red Cell Distribution Width 13.4 % (11.5-14.5)
[2019-02-17 04:31] LABS: INR 1.2; Prothrombin Time 13.8 Seconds (9.4-12.1)
[2019-02-17 04:34] LABS: Activated Partial Thrombo Time 28.5 Seconds (26.0-36.0)
[2019-02-17 04:37] LABS: BUN/Creatinine Ratio 21 (6-26); Blood Urea Nitrogen 21 mg/dL (8-23); Calcium 8.7 mg/dL (8.6-10.3); Carbon Dioxide 22 mEq/L (23-29); Chloride 106 mEq/L (98-107); Glucose 172 mg/dL (70-105); Magnesium 2.2 mg/dL (1.6-2.6); Osmolality,Calculated 289 (280-300); Potassium 4.4 mEq/L (3.5-5.1); Sodium 136 mEq/L (136-145); eGFR For Non-African Americans > 60 (> 60)
[2019-02-17] MEDS: Metoclopramide 10 MG/2 ML VIAL IVP SCH ×4 (05:20→23:55)
[2019-02-17] MEDS: *HR* OxyCODONE/APAP 5/325 TABLET PO PRN (05:20)
[2019-02-17] MEDS: Nitroglycerin 25 MG/250 ML INFUS..BTL IVC SCH (05:21)
[2019-02-17] MEDS: Insulin LISPRO 300 UNITS/3 ML VIAL SQ SCH ×4 (05:55→20:47)
[2019-02-17] MEDS: Aspirin Enteric Coated 81 MG Tablet PO SCH ×2 (05:56→09:00)
[2019-02-17] MEDS: hydroCHLOROthiazide 25 MG TABLET PO SCH (05:56)
[2019-02-17] MEDS: 0.9 % Sodium Chloride 1,000 ML IVC SCH (05:56)
[2019-02-17] MEDS: Metoprolol XL (24 HR) Succ 50 MG TAB.ER.24H PO SCH (05:56)
[2019-02-17] MEDS: Chlorhexidine Rinse 15 ML MOUTHWASH MM SCH ×3 (07:28→20:46)
[2019-02-17] MEDS: Cyanocobalamin (B-12) 1,000 MCG TABLET PO SCH ×2 (07:29→09:00)
[2019-02-17] MEDS: *HR* GlipiZIDE 5 MG TABLET PO SCH (07:29)
[2019-02-17] MEDS: Pantoprazole 40 MG VIAL IVP SCH ×2 (07:29→09:00)
--- NOTE | 2019-02-17 08:11 | Cardiothoracic Progress Note ---
Date of Encounter: 02/17/19 Time of Encounter: 08:08 - Assessment and plan (1) CAD (coronary artery disease) Current Visit: Yes Status: Acute The patient is recovering well from his CABG4. He is currently extubated and breathing comfortably. The arterial line, Briggs catheter, and [place]a catheter be removed. She will be transferred to the stepdown unit when a bed is available. The assessment and plan as outlined above was discussed with the patient and/or family members who expressed understanding and agreement. All questions were answered. Qualifiers: Coronary Disease-Associated Artery/Lesion type: [place] artery [place] vs. transplanted heart: [place] heart Associated angina: with stable angina Qualified Code(s): I25.118 - Atherosclerotic heart disease of [place] coronary artery with other forms of angina pectoris - Subjective Procedure(s) Performed: POD#1 S/P CABG4 Interval history: The patient remained hemodynamically stable overnight. He is currently extubated and breathing comfortably. He has been able to sit in a chair without difficulty. Vital Signs, Last 4 Hours Pulse Resp BP Pulse Ox 02/17/19 07:55 20 94 02/17/19 07:00 90 18 116/46 96 02/17/19 06:00 93 18 123/56 96 02/17/19 05:00 87 16 145/54 96 02/17/19 04:47 16 96 Oxgyen Flow Rate Oxygen Flow Rate (LPM) 4 Clinical Data, last 8 Hours Output, Chest Tube Drainage 0 Amount [Mediastinal #2] Output, Chest Tube Drainage 15 Amount [Mediastinal #2] Output, Chest Tube Drainage 0 Amount [Mediastinal #2] Output, Chest Tube Drainage 10 Amount [Mediastinal #2] Output, Chest Tube Drainage 0 Amount [Mediastinal #2] Output, Chest Tube Drainage 10 Amount [Mediastinal #2] Output, Chest Tube Drainage 0 Amount [Mediastinal #1] Output, Chest Tube Drainage 10 Amount [Mediastinal #1] Output, Chest Tube Drainage 0 Amount [Mediastinal #1] Output, Chest Tube Drainage 10 Amount [Mediastinal #1] Output, Chest Tube Drainage 0 Amount [Mediastinal #1] Output, Chest Tube Drainage 10 Amount [Mediastinal #1] Weight 02/15/19 02/16/19 02/17/19 23:59 23:59 23:59 Weight 99.7 kg 99.5 kg 102.1 kg - Physical Examination General: Conversant, No Apparent Distress Neck: No JVD, Normal carotid pulses Cardiac: Reg Rate and Rhythm, Normal S1 and S2, No Murmur Incision: No signs of infection, Dry/intact dressing Chest tubes: Minimal drainage, Other (No air leak ) Lungs: Normal Breath Sounds, No Wheeze, Rales, Rhonchi Neuro: Alert and responsive, No focal deficits noted Vascular: Normal capillary refill Extremities: No Clubbing, No Cyanosis, No Edema - Labs 02/17/19 04:00 02/17/19 04:00 Lab Results, Last 24 hours 02/16/19 02/16/19 02/16/19 12:28 12:28 12:28 WBC 14.6 H Hgb 8.4 L D Hct 24.7 L Plt Count 133 L INR 1.4 D APTT 30.3 Sodium 138 Potassium 3.7 Chloride 107 Carbon Dioxide 26 BUN 19 Creatinine 1.01 Glucose 114 H Calcium 9.0 Magnesium 2.3 02/16/19 02/17/19 02/17/19 17:20 04:00 04:00 WBC 14.7 H Hgb 9.4 L Hct 28.2 L Plt Count 166 INR 1.2 APTT 28.5 Sodium Potassium 4.1 Chloride Carbon Dioxide BUN Creatinine Glucose Calcium Magnesium 2.3 02/17/19 04:00 WBC Hgb Hct Plt Count INR APTT Sodium 136 Potassium 4.4 Chloride 106 Carbon Dioxide 22 L BUN 21 Creatinine 1.01 Glucose 172 H Calcium 8.7 Magnesium 2.2 - Imaging Chest Xray: image reviewed (No pneumothorax. Minimal atelectasis/infiltrates.) - VTE Reasons for not Prescribing Prophylaxis: Not indicated-Anticoagulated or INR therapeutic Documentation of Mechanical Device: Graduated compression elastic hosiery Consult Discharge Plan - Plan [facility]errals: [facility] [Primary Care Provider] -
[2019-02-17] MEDS: 0.9 % Sodium Chloride w KCl 20 MEQ/1,000 ML MLS IVC SCH (08:32)
[2019-02-17] MEDS ORDERED: Insulin Human Regular 100 UNIT in 0.9 % Sodium Chloride 100 ML IVC SCH (08:39)
[2019-02-17] MEDS ORDERED: Ondansetron 4 MG/2 ML VIAL IVP PRN (08:39)
[2019-02-17] MEDS ORDERED: Dextrose Gel 15 GM/37.5 ML TUBE PO PRN ×4 (08:39)
[2019-02-17] MEDS ORDERED: *HR* FentaNYL (PF) 100 MCG/2 ML VIAL IVP PRN (08:39)
[2019-02-17] MEDS ORDERED: Insulin Regular, Human 100 UNIT/ML IV PRN (08:39)
[2019-02-17] MEDS ORDERED: Naloxone 0.4 MG/ML INJ IVP PRN (08:39)
[2019-02-17] MEDS ORDERED: Acetaminophen 325 MG TABLET PO PRN (08:39)
[2019-02-17] MEDS ORDERED: D5% in Water 1,000 ML IVC PRN (08:39)
[2019-02-17] MEDS ORDERED: Nitroglycerin 0.4 MG TAB.SUBL SL PRN (08:39)
[2019-02-17] MEDS ORDERED: *HR* Dextrose 50 % in Water (Syg) 50 ML SYRINGE IVP PRN ×3 (08:39)
[2019-02-17] MEDS ORDERED: Furosemide 20 MG/2 ML VIAL IVP SCH (09:00)
[2019-02-17] MEDS: Furosemide 20 MG/2 ML VIAL IVP SCH ×2 (09:00→20:47)
[2019-02-17] MEDS ORDERED: Aspirin Enteric Coated 81 MG Tablet PO SCH (09:00)
--- NOTE | 2019-02-17 11:33 | Anesthesia Evaluation Post Op ---
Date of Encounter: 02/17/19 Time of Encounter: 07:00 - Vital Signs Vital Signs: Selected Entries 02/17/19 07:00 Pulse Rate 90 Respiratory Rate 18 Blood Pressure 116/46 O2 Sat by Pulse Oximetry 96 Oxygen Flow Rate (LPM) 4 Oxygen Delivery Method Nasal Cannula - Lungs Lungs: Clear Ascult./Percussion - Airway Airway: Non-obstructed - Cardiovascular Regular Rate - Mental Status Mental Status: Alert & Oriented, Answers Appropriately - Pain Pain Scale: 3 Pain Scale used: Numeric (1 - 10) - Nausea Vomiting Nausea Vomiting: Not Present - Hydration Hydration: Tolerates oral liquids, Briggs catheter (patient doing well s/p CABG, no apparent anesthesia complications)
--- NOTE | 2019-02-17 11:47 | Electrocardiograph Report ---
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
[2019-02-18] MEDS: Metoclopramide 10 MG/2 ML VIAL IVP SCH ×3 (05:10→18:09)
--- NOTE | 2019-02-18 08:47 | Cardiothoracic Progress Note ---
Date of Encounter: 02/18/19 Time of Encounter: 08:45 - Assessment and plan (1) CAD (coronary artery disease) Current Visit: Yes Status: Acute The patient is recovering well from his CABG4. The chest tubes were removed. The patient will begin ambulating in the hallways today. The assessment and plan as outlined above was discussed with the patient and/or family members who expressed understanding and agreement. All questions were answered. Qualifiers: Coronary Disease-Associated Artery/Lesion type: [place] artery [place] vs. transplanted heart: [place] heart Associated angina: with stable angina Qualified Code(s): I25.118 - Atherosclerotic heart disease of [place] coronary artery with other forms of angina pectoris - Subjective Procedure(s) Performed: POD#2 S/P CABG4 Interval history: The patient remained hemodynamically stable overnight. He is sitting in a chair eating breakfast this morning. He has no complaints. Vital Signs, Last 4 Hours Temp Pulse Resp BP Pulse Ox 02/18/19 07:26 105 18 112/64 91 02/18/19 05:56 98.3 F 98 12 133/63 89 Oxgyen Flow Rate Oxygen Flow Rate (LPM) 4 Clinical Data, last 8 Hours Output, Chest Tube Drainage 20 Amount [Mediastinal #2] Output, Chest Tube Drainage 30 Amount [Mediastinal #1] Weight 02/16/19 02/17/19 02/18/19 23:59 23:59 23:59 Weight 99.5 kg 102.1 kg 101 kg - Physical Examination General: Conversant, No Apparent Distress Neck: No JVD, Normal carotid pulses Cardiac: Reg Rate and Rhythm, Normal S1 and S2, No Murmur Incision: No signs of infection, Dry/intact dressing Sternum: Stable Chest tubes: Minimal drainage, Other (No air leak) Pacing Wires: In place Lungs: Normal Breath Sounds, No Wheeze, Rales, Rhonchi Neuro: Alert and responsive, No focal deficits noted Vascular: Normal capillary refill Extremities: No Clubbing, No Cyanosis, No Edema - Labs 02/17/19 04:00 02/17/19 04:00 - VTE Reasons for not Prescribing Prophylaxis: Not indicated-Anticoagulated or INR therapeutic Documentation of Mechanical Device: Graduated compression elastic hosiery Consult Discharge Plan - Plan Referrals: Manuel Fine MD [Partnered Physician] - 03/16/19 2:45 pm Karey Garcia MD [Partnered Physician] - (Office to call patient with follow up appointment) MD,PCP [Primary Care Provider] - 02/28/19 2:30 pm
[2019-02-18] MEDS: Furosemide 20 MG/2 ML VIAL IVP SCH ×2 (09:20→21:01)
[2019-02-18] MEDS: Chlorhexidine Rinse 15 ML MOUTHWASH MM SCH ×2 (09:20→21:00)
[2019-02-18] MEDS: Cyanocobalamin (B-12) 1,000 MCG TABLET PO SCH (09:20)
[2019-02-18] MEDS: *HR* OxyCODONE/APAP 5/325 TABLET PO PRN ×3 (09:20→18:09)
[2019-02-18] MEDS: Aspirin Enteric Coated 81 MG Tablet PO SCH (09:20)
[2019-02-18] MEDS: Pantoprazole 40 MG VIAL IVP SCH (09:20)
[2019-02-18] MEDS: Insulin LISPRO 300 UNITS/3 ML VIAL SQ SCH ×4 (09:33→21:01)
[2019-02-19] MEDS: Metoclopramide 10 MG/2 ML VIAL IVP SCH ×3 (00:25→12:18)
--- NOTE | 2019-02-19 08:55 | Cardiothoracic Progress Note ---
Date of Encounter: 02/19/19 Time of Encounter: 08:54 - Assessment and plan (1) CAD (coronary artery disease) Current Visit: Yes Status: Acute The patient is recovering well from his CABG4. The patient will begin ambulating in the hallways today. The assessment and plan as outlined above was discussed with the patient and/or family members who expressed understanding and agreement. All questions were answered. Qualifiers: Coronary Disease-Associated Artery/Lesion type: [place] artery [place] vs. transplanted heart: [place] heart Associated angina: with stable angina Qualified Code(s): I25.118 - Atherosclerotic heart disease of [place] coronary artery with other forms of angina pectoris - Subjective Procedure(s) Performed: POD#3 S/P CABG4 Interval history: The patient remained hemodynamically stable overnight. He is sitting in a chair eating breakfast this morning. He has no complaints. Vital Signs, Last 4 Hours Temp Pulse Resp BP Pulse Ox 02/19/19 07:03 98.8 F 91 18 134/68 92 Oxgyen Flow Rate Oxygen Flow Rate (LPM) 4 Weight 02/17/19 02/18/19 02/19/19 23:59 23:59 23:59 Weight 102.1 kg 101 kg 100.4 kg - Physical Examination General: Conversant, No Apparent Distress Neck: No JVD, Normal carotid pulses Cardiac: Reg Rate and Rhythm, Normal S1 and S2, No Murmur Incision: No signs of infection, Dry/intact dressing Sternum: Stable Pacing Wires: In place Lungs: Normal Breath Sounds, No Wheeze, Rales, Rhonchi Neuro: Alert and responsive, No focal deficits noted Vascular: Normal capillary refill Extremities: No Clubbing, No Cyanosis, No Edema - Labs 02/17/19 04:00 02/17/19 04:00 - VTE Reasons for not Prescribing Prophylaxis: Not indicated-Anticoagulated or INR therapeutic Documentation of Mechanical Device: Graduated compression elastic hosiery Consult Discharge Plan - Plan Referrals: Manuel Fine MD [Partnered Physician] - 03/16/19 2:45 pm Karey Garcia MD [Partnered Physician] - (Office to call patient with follow up appointment) [facility] [Primary Care Provider] - 02/28/19 2:30 pm
[2019-02-19] MEDS: Insulin LISPRO 300 UNITS/3 ML VIAL SQ SCH ×4 (09:27→21:55)
[2019-02-19] MEDS: Aspirin Enteric Coated 81 MG Tablet PO SCH (09:28)
[2019-02-19] MEDS: *HR* GlipiZIDE 5 MG TABLET PO SCH ×2 (09:28→17:22)
[2019-02-19] MEDS: Chlorhexidine Rinse 15 ML MOUTHWASH MM SCH ×2 (09:28→20:28)
[2019-02-19] MEDS: Furosemide 20 MG/2 ML VIAL IVP SCH (09:29)
[2019-02-19] MEDS: Pantoprazole 40 MG VIAL IVP SCH (09:30)
[2019-02-19] MEDS: *HR* OxyCODONE/APAP 5/325 TABLET PO PRN ×2 (09:30→15:20)
[2019-02-19] MEDS: Cyanocobalamin (B-12) 1,000 MCG TABLET PO SCH (09:30)
[2019-02-20] MEDS: Insulin LISPRO 300 UNITS/3 ML VIAL SQ SCH ×2 (09:31→12:33)
[2019-02-20] MEDS: *HR* GlipiZIDE 5 MG TABLET PO SCH ×2 (09:31→16:25)
[2019-02-20] MEDS: Aspirin Enteric Coated 81 MG Tablet PO SCH (09:32)
[2019-02-20] MEDS: Cyanocobalamin (B-12) 1,000 MCG TABLET PO SCH (09:32)
[2019-02-20] MEDS: Chlorhexidine Rinse 15 ML MOUTHWASH MM SCH (09:32)
[2019-02-20] MEDS: Pantoprazole 40 MG VIAL IVP SCH (09:32)
[2019-02-20] MEDS: *HR* OxyCODONE/APAP 5/325 TABLET PO PRN ×3 (09:32→16:25)
[2019-02-20 11:32] VITALS: BP 128/69
--- NOTE | 2019-02-20 15:28 | Discharge Summary ---
Orders not resulted at time of discharge: Pending orders 02/15/19 10:32 Red Blood Cells [BBK] Routine Type and Screen [BBK] Routine Date of Encounter: 02/20/19 Time of Encounter: 15:24 - Discharge Diagnosis (1) CAD (coronary artery disease) Priority: Primary Status: Acute Qualifiers: Coronary Disease-Associated Artery/Lesion type: [place] artery [place] vs. transplanted heart: [place] heart Associated angina: with stable angina Qualified Code(s): I25.118 - Atherosclerotic heart disease of [place] coronary artery with other forms of angina pectoris - Hospital Course Hospital course: Mr. Metzger is a 69 year old male The patient is a 69-year-old male who presented with coronary artery disease. Cardiac catheterization revealed a 60% left main lesion and 100% block of his right coronary artery. On 02/16/2019, Dr. Fine took the patient to the operating room for coronary artery bypass grafting 4, utilizing the left internal mammary artery. On February 17, transfer orders were written. On February 18, the chest tubes were removed. The patient otherwise did well and was discharged to home on February 20. At that time, his pacing wires were removed. He was afebrile. Lungs were clear to percussion and auscultation. Heart was in a normal sinus rhythm. All incisions were healing well without signs of infection and the sternum was stable. Discharge medications are on the med rec and include narcotics for pain. I did check the [place] automated Rx reporting system. The patient was postoperative and was given a one-week supply. Appropriate precautions were given. He was to return to his previous and regular diet. He was to avoid heavy lifting for a total of 3 months after surgery, but to walk as much as possible. He was to avoid driving for 1 month. He was to follow-up and see Dr. Fine in the office in 4 weeks as directed. 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 He is to call sooner for any difficulties. - Time Spent with Patient Total time spent providing and/or coordinating discharge services: - Discharge Medications Prescriptions: New Metoprolol [Lopressor] 25 mg PO BID #60 tablet OxyCODONE/APAP 5/325 [Percocet 5/325 MG] 1 each PO Q4HR PRN 7 Days #10 tablet PRN Reason: Severe Pain Continued Nitroglycerin [Nitrostat] 0.4 mg SL AD PRN PRN Reason: Chest Pain Atorvastatin Calcium [Lipitor] 80 mg PO HS Cyanocobalamin (B-12) [Vitamin B12] 1,000 mcg PO DAILY glipiZIDE [Glipizide] 10 mg PO BID Lisinopril [Zestril] 20 mg PO AD Naproxen [Naprosyn] 500 mg PO BID Aspirin [Lo-Dose Aspirin EC] 81 mg PO DAILY Home Medications: Aspirin [Lo-Dose Aspirin EC] 81 mg PO DAILY 02/14/19 [History] Atorvastatin Calcium [Lipitor] 80 mg PO HS 02/14/19 [History] Cyanocobalamin (B-12) [Vitamin B12] 1,000 mcg PO DAILY 02/14/19 [History] Lisinopril [Zestril] 20 mg PO AD 02/14/19 [History] Naproxen [Naprosyn] 500 mg PO BID 02/14/19 [History] Nitroglycerin [Nitrostat] 0.4 mg SL AD PRN 02/14/19 [History] glipiZIDE [Glipizide] 10 mg PO BID 02/14/19 [History] Metoprolol [Lopressor] 25 mg PO BID #60 tablet 02/20/19 [Rx] OxyCODONE/APAP 5/325 [Percocet 5/325 MG] 1 each PO Q4HR PRN 7 Days #10 tablet 02/20/19 [Rx] Allergies/Adverse Reactions: Allergy/AdvReac Type Severity Reaction Status Date / Time No Known Allergies Allergy Verified 02/17/19 07:54 Date of admission: 02/14/19 16:49 [facility] care [facility]: [facility] Consults: 02/16/19 11:53 Consult to Cardiac Rehabilitation-Phase1 [CONS] Routine Comment: Reason for Consult: Post open heart Call Completed: Yes Procedure(s) Performed: 02/16/2019. Coronary artery bypass grafting 4, utilizing the left internal mammary artery. Discharging clinician: Elpidio Metzger Anticipated date of discharge: 02/20/19 Physical Examination Vital Signs, Last 4 Hours Temp Pulse Resp BP Pulse Ox 02/20/19 11:28 98.3 F 81 18 128/69 92 - Patient Status Disposition: Home, Self-Care Functional capacity at discharge: independent ambulation Overall status at discharge: patient is progressing back to baseline - Discharge Instructions Instructions: Oxycodone/Acetaminophen (By mouth), Coronary Artery Disease (DC), Chronic Hypertension (DC) Follow Up With: Manuel Fine MD [Partnered Physician] - 03/16/19 2:45 pm Karey Garcia MD [Partnered Physician] - (Office to call patient with follow up appointment) [facility] [Primary Care Provider] - 02/28/19 2:30 pm [facility] Aspirin Cont/Prescribed at DC: Yes Beta Ronald Cont/Prescribed at DC: Yes Statin Cont/Prescribed at DC: Yes OTONIEL/ARB Cont/Prescribed at DC: Yes - VTE Reasons for not Prescribing Prophylaxis: Not indicated-Anticoagulated or INR therapeutic Documentation of Mechanical Device: Graduated compression elastic hosiery
== END 2019-02-20 16:52 | disposition home or self-care (01) | DRG 234 ==
LOC: INVDIALAB 09:54 → 2ANU 16:14 → ICNU 02-16 09:36 → 2NNU 02-17 10:40
PROVIDERS: ADMIT Internal Medicine Interventional Cardiology; ATTEND Thoracic Surgery (Cardiothoracic Vascular Surgery)